=== PATIENT | female | born 1995 | race Caucasian/White ===

== ENCOUNTER 2025-02-06 14:11 | Outpatient (CLI) | payer OTHER | END 2025-02-06 14:12 | disposition home or self-care (01) | LOC: ULT 14:11 | PROVIDERS: ATTEND Student in an Organized Health Care Education/Training Program | DX: Z13.6 Encounter for screening for cardiovascular disorders (principal); R09.89 Other specified symptoms and signs involving the circulatory and respiratory systems | CPT/HCPCS: 75571; 93880 ==